=== PATIENT | female | born 1960 ===

== ENCOUNTER 2019-07-03 13:19 | Outpatient (CLI) | payer OTHER ==
--- NOTE | 2019-07-03 14:19 | CT ---
CT NECK SOFT TISSUES WITH CONTRAST: 07/03/2019 HISTORY: A 58-year-old female with ICD-10 R13.10, dysphagia. The patient attributes the dysphagia to enlarged thyroid gland. FINDINGS: The left and right lobes of the thyroid gland are moderately enlarged, left greater than right. There is a nonspecific 1 cm right lobe upper pole nodule. There may be numerous tiny subcentimeter nodules bilaterally. The thyroid gland does not cause significant mass effect upon the trachea or larynx. Th e trachea is of normal caliber. The larynx is normal. No cervical lymphadenopathy. The retropharyngeal, parapharyngeal, perivertebral, submandibular, parot id, carotid, office coordinator and posterior cervical spaces are unremarkable. 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 Right paracentral moderately large bridg ing osteophytes protruding anteriorly into the prevertebral space at C6-C7. Its medial edge indents t he right side of the upper esophagus. The lung apices are grossly clear. IMPRESSION: 1. 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 This may be the cause of the dys phagia. 2. Thyromegaly. POS: [facility]
[2019-07-03] MEDS ORDERED: Iopamidol-370 76% 500 ML 1 ML ONE (15:41)
== END 2019-07-03 13:20 | disposition home or self-care (01) ==
LOC: BICCT 13:19
PROVIDERS: ATTEND Student in an Organized Health Care Education/Training Program
DX: R13.10 Dysphagia, unspecified (principal); E01.0 Iodine-deficiency related diffuse (endemic) goiter; M25.78 Osteophyte, vertebrae
CPT/HCPCS: 70491; 82565